=== PATIENT | male | born 1990 | race Hispanic/Latino ===

== ENCOUNTER 2017-05-11 16:11 | Emergency (ER) | payer OTHER ==
[2017-05-11 16:34] VITALS: O2SAT 100
[2017-05-11] MEDS ORDERED: Sodium Chloride 0.9% 1,000 ML IV STA (16:56)
[2017-05-11 17:20] LABS: VENOUS BLOOD GAS BASE EXCESS 4.3 mmol/L (0.0-2.0); VENOUS BLOOD GAS PCO2 47 mmHg (40-60); VENOUS BLOOD PH 7.41 (7.32-7.43)
--- NOTE | 2017-05-11 17:20 | ED PDOC ---
HPI:Nausea, Vomiting, Diarrhea Chief Complaint (Provider): Diarrhea History Per: Patient History/Exam Limitations: no limitations Additional Complaint(s): 26 y/o M c/o 15 episodes of non-bloody diarrhea since last night. Pt also complains of nausea and reports an episode of vomiting last night that lasted several minutes. Pt also reports diffuse abdominal pain, distension, fatigue, headache and fever. Today, temperature of 100.6 degF and BP 90/50 at urgent care. Pt explains having nausea, vomiting and abdominal pain since 8 days ago that was progressively alleviating until last night. Pt reports NO recent traveling but eating sushi last week before onset of symptoms. Pt denies previous similar episode, family Hx of GI issues, rash or dysuria. Allergies: Penicillin and cat dander. Medications: None. PMHx: denied. PSHx: denied. FHx: NC SHx: Denies tobacco, alcohol or rec drugs. Pt is a monogamous relationship. <Carlos Ledesma - Last Filed: 05/11/17 18:52> <Lily Henry - Last Filed: 05/11/17 23:10> Time Seen by Provider: 05/11/17 16:41 Chief Complaint (Nursing): Dizziness/Lightheaded Past Medical History Vital Signs: Last Vital Signs Temp 100.7 F H 05/11/17 16:32 Pulse 86 05/11/17 16:32 Resp 18 05/11/17 16:32 BP 120/57 L 05/11/17 16:32 Pulse Ox 100 05/11/17 16:32 - Medical History PMH: No Chronic Diseases - Family History Family History: States: No Known Family Hx <Carlos Ledesma - Last Filed: 05/11/17 18:52> Vital Signs: Last Vital Signs Temp 99.0 F 05/11/17 20:26 Pulse 63 05/11/17 20:26 Resp 18 05/11/17 20:26 BP 115/48 L 05/11/17 20:26 Pulse Ox 100 05/11/17 20:37 <Lily Henry - Last Filed: 05/11/17 23:10> - Allergies Allergies/Adverse Reactions: Allergies Allergy/AdvReac Type Severity Reaction Status Date / Time Penicillins Allergy RASH Verified 05/11/17 16:35 cats Allergy ITCHING Uncoded 05/11/17 16:35 Review of Systems Constitutional: Positive for: Fever, Weakness. Negative for: Chills ENT: Negative for: Ear Pain, Mouth Swelling Cardiovascular: Negative for: Chest Pain, Palpitations Respiratory: Negative for: Cough, Shortness of Breath Gastrointestinal: Positive for: Nausea, Vomiting, Abdominal Pain, Diarrhea. Negative for: Constipation, Melena, Hematochezia, Hematemesis Genitourinary Male: Negative for: Dysuria, Frequency <Carlos Ledesma - Last Filed: 05/11/17 18:52> Physical Exam - Physical Exam Appears: Positive for: Well, Uncomfortable Head Exam: Positive for: ATRAUMATIC, NORMAL INSPECTION Skin: Positive for: Normal Color, Warm ENT: Positive for: Normal ENT Inspection Neck: Positive for: Normal, Supple Cardiovascular/Chest: Positive for: Regular Rate, Rhythm Respiratory: Positive for: Normal Breath Sounds Gastrointestinal/Abdominal: Positive for: Bowel Sounds, Soft, Tenderness (( diffuse tenderness, predominantly over LLQ area)). Negative for: Organomegaly, Mass, Distended, Guarding Neurologic/Psych: Positive for: Alert, Oriented <Carlos Ledesma - Last Filed: 05/11/17 18:52> - Laboratory Results Result Diagrams: 05/11/17 17:20 05/11/17 17:20 - ECG O2 Sat by Pulse Oximetry: 100 <Carlos Ledesma - Last Filed: 05/11/17 18:52> - Laboratory Results Result Diagrams: 05/11/17 17:20 05/11/17 17:20 <Lily Henry - Last Filed: 05/11/17 23:10> Medical Decision Making Medical Decision Makin26 y/o M with abdominal pain and diarrhea for 8 days. Ruling out bacterial gastroenteritis or colitis. Plan: --CBC --CMP --Blood culture --Urine culture --Urinalysis --Lipase --Magnesium --VGB --CT Abdomen & pelvis --IV NSS --Acetaminophen. 17:40 Pt reported dizziness upon blood sample taking. IV D5W NSS ordered to be administered after IV NSS 0.9%. 18:53 Temp 99 degF, taken by me. Pt report improvement of symptoms. CT Abdomen still waiting. Will transfer of care to Dr Henry. <Carlos Ledesma - Last Filed: 05/11/17 18:52> Disposition - Patient ED Disposition Is Patient to be Admitted: Transfer of Care - Disposition Disposition: Transfer of Care Disposition Time: 18:58 <Carlos Ledesma - Last Filed: 05/11/17 18:52> <Lily Henry - Last Filed: 05/11/17 23:10> - Clinical Impression Clinical Impression: Diarrhea - Disposition Referrals: Alfonso Aragon [Medical Doctor] - (CALL TOMORROW TO SETUP FOLLOW UP APPOINTMENT NEXT WEEK.) Condition: IMPROVED Prescriptions: Atropine/Diphenoxylate [Lonox 0.025 MG-2.5 MG] 2 tab PO Q6 PRN #30 tab PRN Reason: Diarrhea Ciprofloxacin [Cipro] 1 tab PO BID #14 tab metroNIDAZOLE [Flagyl] 500 mg PO TID #30 tab Saccharomyces Boulardi [Florastor] 500 mg PO BID #28 cap Instructions: Gastroenteritis (ED), Nutrition Tips for Relief of Diarrhea (ED) Forms: [facility] ED School/Work Excuse
[2017-05-11 17:36] LABS: BASO % 0.1 % (0.0-2.0); EOS % 0.1 % (0.0-4.0); HEMATOCRIT 43.5 % (35.0-51.0); LYMPH # 1.2 K/uL (1.0-4.3); MEAN CELL VOLUME 93.2 fl (80.0-94.0); MEAN CORPUSCULAR HEMOGLOBIN 32.2 pg (27.0-31.0); MEAN CORPUSCULAR HGB CONC 34.6 g/dL (33.0-37.0); MEAN PLATELET VOLUME 9.3 fl (7.2-11.7); MONO # 0.7 K/uL (0.0-0.8); MONO % 6.3 % (0.0-10.0); NEUT # 9.8 K/uL (1.8-7.0); NEUT % 83.5 % (50.0-75.0); RED CELL DISTRIBUTION WIDTH 12.5 % (11.5-14.5); WHITE BLOOD COUNT 11.8 K/uL (4.8-10.8)
[2017-05-11 17:43] LABS: RBC URINE 1 /hpf (0-3); URINE BACTERIA RARE (<OCC); URINE BILIRUBIN NEGATIVE (NEGATIVE); URINE BLOOD NEGATIVE (NEGATIVE); URINE COLOR YELLOW (YELLOW); URINE GLUCOSE (UA) NEG (Normal); URINE KETONE NEGATIVE (NEGATIVE); URINE LEUKOCYTE ESTERASE NEG Leu/uL (Negative); URINE PROTEIN NEGATIVE (NEGATIVE); URINE UROBILINOGEN 0.2-1.0 mg/dL (0.2-1.0); WBC URINE 1 /hpf (0-5)
[2017-05-11 18:08] LABS: ALB/GLOB RATIO 1.7 (1.0-2.1); ALKALINE PHOSPHATASE 37 U/L (38-126); ALT/SGPT 51 U/L (21-72); AST/SGOT 44 U/L (17-59); BILIRUBIN,TOTAL 1.1 mg/dl (0.2-1.3); BLOOD UREA NITROGEN 15 mg/dl (9-20); CARBON DIOXIDE 26 mmol/L (22-30); CHLORIDE 98 mmol/L (98-107); GFR AFRICAN-AMERICAN > 60; GLUCOSE,RANDOM 106 mg/dL (75-110); LIPASE 27 U/L (23-300); MAGNESIUM 1.5 MG/DL (1.6-2.3); POTASSIUM 3.8 MMOL/L (3.6-5.0); SODIUM 135 mmol/l (132-148); TOTAL PROTEIN 7.2 G/DL (6.3-8.2)
[2017-05-11] MEDS ORDERED: Sodium Chloride 0.9% 50 ML IV ONE (19:17)
[2017-05-11] MEDS ORDERED: Iohexol 300 100 ML IJ ONE (19:17)
--- NOTE | 2017-05-11 20:18 | ED PDOC ---
- Laboratory Results Result Diagrams: 05/11/17 17:20 05/11/17 17:20 - ECG O2 Sat by Pulse Oximetry: 100 - Progress ED Course And Treament: Continued care initiated with Dr Ledesma. EXAM: CT Abdomen and Pelvis With Intravenous Contrast EXAM DATE/TIME: 05/11/2017 4:54 PM CLINICAL HISTORY: 26 years old, male; Signs and symptoms; Fever and vomiting and other: Diarrhea, ; additional info: Llq pain and diarrhea, R/O colitis. Sent phy. Doc. TECHNIQUE: Axial computed tomography images of the abdomen and pelvis with intravenous contrast. All CT scans at this facility use one or more dose reduction techniques, viz.: automated exposure control; ma/kV adjustment per patient size (including targeted exams where dose is matched to indication; i.e. head); or iterative reconstruction technique. Coronal and sagittal reformatted images were created and reviewed. CONTRAST: 95 mL of [id number] administered intravenously. COMPARISON: No relevant prior studies available. FINDINGS: Lower thorax: No acute findings. ABDOMEN: Liver: Unremarkable. No mass. Gallbladder and bile ducts: Unremarkable. No calcified stones. No ductal dilation. Pancreas: Unremarkable. No mass. No ductal dilation. Spleen: Unremarkable. No splenomegaly. Adrenals: Unremarkable. No mass. Kidneys and ureters: Unremarkable. No solid mass. No hydronephrosis. Stomach and bowel: Fluid containing small bowel without significant distention is nonspecific and may be within normal limits or represent an enteritis. No evidence of colitis. Appendix: No findings to suggest acute appendicitis. PELVIS: Bladder: Unremarkable. No mass. Reproductive: Unremarkable as visualized. ABDOMEN and PELVIS: Intraperitoneal space: Small free fluid in the pelvis. No free air. Bones/joints: Right hip arthroplasty. No acute fracture. No dislocation. Soft tissues: Unremarkable. Vasculature: Unremarkable. No abdominal aortic aneurysm. Lymph nodes: Unremarkable. No enlarged lymph nodes. IMPRESSION: Fluid containing small bowel without significant distention is nonspecific and may be within normal limits or represent an enteritis. No evidence of colitis. Thank you for allowing us to participate in the care of your patient. Dictated and Authenticated by: Van Childs MD 05/11/2017 8:07 PM Eastern Time ([place] & [place]) On reevaluation pt feeling better. DW pt findings and plan of care. All questions addressed and pt eager to go home. Re-evaluation Time: 20:18 Condition: Improved Disposition Counseled Patient/Family Regarding: Studies Performed, Diagnosis, Need For Followup, Rx Given - Clinical Impression Clinical Impression: Diarrhea - POA Present On Arrival: None - Disposition Referrals: Alfonso Aragon [Medical Doctor] - (CALL TOMORROW TO SETUP FOLLOW UP APPOINTMENT NEXT WEEK.) Disposition: Routine/Home Disposition Time: 20:00 Condition: IMPROVED Prescriptions: Atropine/Diphenoxylate [Lonox 0.025 MG-2.5 MG] 2 tab PO Q6 PRN #30 tab PRN Reason: Diarrhea Ciprofloxacin [Cipro] 1 tab PO BID #14 tab metroNIDAZOLE [Flagyl] 500 mg PO TID #30 tab Saccharomyces Boulardi [Florastor] 500 mg PO BID #28 cap Instructions: Gastroenteritis (ED), Nutrition Tips for Relief of Diarrhea (ED) Forms: [facility] ED School/Work Excuse
[2017-05-11 20:28] VITALS: BP 115/48; PULSE 63; RESP 18; TEMP 99
--- NOTE | 2017-05-12 08:01 | CT ---
PROCEDURE: CT Abdomen and Pelvis with contrast HISTORY: LLQ pain and diarrhea, r/o colitis COMPARISON: None. TECHNIQUE: Contrast dose: Omnipaque 300, 95 cc. Radiation dose: Total exam DLP = 673.77 mGy-cm. This CT exam was performed using one or more of the following dose reduction techniques: Automated exposure control, adjustment of the mA and/or kV according to patient size, and/or use of iterative reconstruction technique. FINDINGS: LOWER THORAX: Unremarkable. LIVER: Unremarkable. No gross lesion or ductal dilatation. GALLBLADDER AND BILE DUCTS: Unremarkable. PANCREAS: Unremarkable. No gross lesion or ductal dilatation. SPLEEN: Unremarkable. ADRENALS: Unremarkable. No mass. KIDNEYS AND URETERS: Unremarkable. No hydronephrosis. No solid mass. VASCULATURE: Unremarkable. No aortic aneurysm. BOWEL: Fluid-filled small bowel loops are identified scattered throughout the abdomen with fluid and retained stool identified at the ascending colon. Small bowel the left upper quadrant appears relatively contracted as well as the descending colon and evaluation the arizmendi is limited throughout these segments. Consider possible enteritis or even antro colitis though this is not definite. Lack of oral contrast limits evaluation the bowel specifically. Stomach appears collapsed. APPENDIX: Normal appendix. PERITONEUM: Unremarkable. No free fluid. No free air. LYMPH NODES: Unremarkable. No enlarged lymph nodes. BLADDER: Unremarkable. REPRODUCTIVE: Unremarkable. BONES: No acute fracture. OTHER FINDINGS: Right shoulder replacement generates artifact obscuring the mid to inferior pelvis soft tissues. Defects at the proximal left femur suggests prior removal of orthopedic fixation hardware. IMPRESSION: Limited enteritis or enterocolitis is possible but evaluation of the bowel was limited to the lack of oral contrast. Further clinical correlation is advised. No measure edema, ascites or free intrarenal gas. No bowel obstruction identified. Appendix appears normal. Please see discussion above. Concordant preliminary report from [facility], 05/11/2017.
== END 2017-05-11 20:35 | disposition home or self-care (01) ==
LOC: H.ER 16:11
DX: R19.7 Diarrhea, unspecified (principal); Z88.0 Allergy status to penicillin
CPT/HCPCS: 74177; 80053; 81003; 82803; 83690; 83735; 85025; 87040; 99285; J7040; Q9967